=== PATIENT | female | born 1970 | race Caucasian/White ===

== ENCOUNTER → 2024-01-01 07:38 | Outpatient (REF) | payer OTHER, SELFPAY | LOC: HWRAD 07:38 | PROVIDERS: ATTENDING PHYSICIAN Nurse Practitioner Family | DX: M79.89 Other specified soft tissue disorders (principal) | CPT/HCPCS: 76882 ==

== ENCOUNTER 2024-02-14 06:45 | Emergency (ER) | payer OTHER, SELFPAY ==
[2024-02-14 06:47] VITALS: BP 144/88
--- NOTE | 2024-02-14 07:09 | ED.MUSCINJ ---
HPI-Injury
General
Chief Complaint: Musculo-Skeletal Complaint
Time Seen by Provider: 02/14/24 06:52
History of Present Illness-Injury
Initial Injury comments:
53-year-old female without significant past medical history presenting for right shoulder pain. Patient reports last evening she was driving home from dinner. She did a quick motion with the right shoulder when driving and when she got home
started to have increased pain to the right shoulder. She is having difficulty lifting her shoulder secondary to pain. Denies numbness or tingling to the arm. Denies chest pain or difficulty breathing. Denies fever or cough. Denies injuries to
the shoulder in the past. She has not tried any medications for pain. She denies additional acute medical complaint
Past History
Past History
ED Past Medical History: Other (asymptomatic kidney stones (incidental finding))
ED Past Surgical History: and Other (Sinus surgery)
Social History
Tobacco: Non-smoker
Personal:
Living: with family
Family History
Family History: Negative Diabetes, Hypertension, Early CAD, Asthma or Cancer
Phy Exam
Physical Exam
Physical Exam:
General: Well-appearing, no clinical signs of dehydration, nontoxic and in no acute distress
HEENT: protecting airway
Neck: appears supple
CV: Normal heart rate
Resp: No accessory muscle use, no increased work of breathing
Abd: No distention
Extremities: No deformities, no swelling. Decreased range of motion to the right shoulder, particularly in abduction. Distal sensation and pulses intact. No erythema or warmth
Neuro: alert, no focal neurologic deficit
: deferred
Rectal: deferred
Psych: Normal affect
Skin: Intact
Injury Course
Orders/Labs/Results
Orders:
Orders
02/14/24 07:08
Ketorolac [Toradol] 15 mg IM NOW STA
Shoulder, Right 2 Views [CR Shoulder - Right Min 2 View] Urgent
Comment:
Reason For Exam: pain, suspected rotator cuff injury
02/14/24 07:10
Electrocardiogram (*1) Urgent
Reason for Study: Other
Other Reason for Exam: shoulder pain
EKG- Treatment ONCE
MDM/Problems Addressed
MDM/Problems Addressed:
53-year-old female presenting with right shoulder pain after she twisted her shoulder while driving. Vital signs are normal.
On exam, patient is well-appearing, no acute distress or discomfort. Overall benign examination without obvious deformity or swelling. No infectious findings. No neurovascular compromise. Range of motion limited secondary to pain. Send
assessment was consistent with musculoskeletal strain, possible rotator cuff injury given issues with abduction. Patient without chest pain breathing, without concern for ACS. Will screen with EKG. Will administer Toradol for pain and screen with
x-ray imaging.
08:20 - X-ray without fracture or malalignment. On reassessment, patient remains hemodynamically stable. Feel stable for discharge with continued outpatient supportive therapy. Provided with patient for orthopedics, may require MRI imaging if
symptoms are persisting. Return precautions discussed and patient verbalized understanding
*Critical Care Note
Total Time (30-74mins, 75-104mins- exclusive of procedures): Not Applicable
ED Attending Note
-
Portions of this chart may have been created with voice recognition software.� Occasional wrong word or��sound alike� substitutions may have occurred due to the inherent limitations of voice recognition software.
Discharge Plan
Departure
Prescriptions:
No Action
No Current Medications
hydrocodone-acetaminophen [Vicodin ES] 1 EACH tablet
1 ea PO Q4HPRN PRN (Reason: pain) Qty: 14 0RF
phenazopyridine 200 MG tablet
200 mg PO TID Qty: 6 0RF
ciprofloxacin HCl 500 MG tablet
500 mg PO BID Qty: 6 0RF
oxybutynin chloride [Ditropan XL] 10 MG tablet extended release 24hr
10 mg PO DAILY Qty: 7 0RF
prednisone 10 MG tablet
10 mg PO .TAPER Qty: 20 0RF
Rx Instructions:
Take [id number], [id number], [id number], [id number].
Referrals:
UNKNOWN - PT DOES,NOT KNOW [Family Provider] -
Interventions
Interventions:
*Risk Screen - Suicide Last Done: 02/14/24 06:47
*General Assessment Last Done: 02/14/24 06:47
*Neglect/Abuse Screening Last Done: 02/14/24 06:47
Discharge Date and Time
Print Language: BELARUSIAN
[2024-02-14] MEDS: TORADOL 15 MG IM (07:21)
[2024-02-14 09:06] VITALS: BP 129/84
== END 2024-02-14 09:12 | disposition home or self-care (01) ==
LOC: EMR 06:45
PROVIDERS: EMERGENCY PHYSICIAN Student in an Organized Health Care Education/Training Program; FAMILY PHYSICIAN Nurse Practitioner Family
DX: M25.511 Pain in right shoulder (principal); Z82.49 Family history of ischemic heart disease and other diseases of the circulatory system; Z87.442 Personal history of urinary calculi
CPT/HCPCS: 99283; 73030

== ENCOUNTER 2024-02-15 19:07 | Emergency (ER) | payer OTHER, SELFPAY ==
[2024-02-15 19:08] VITALS: BP 149/90
[2024-02-15] MEDS: NORCO 5/325 1 TABLET PO (20:08)
--- NOTE | 2024-02-15 22:37 | ED.MUSCINJ ---
HPI-Injury
General
Chief Complaint: Musculo-Skeletal Complaint
Source: patient
Exam Limitations: none
Time Seen by Provider: 02/15/24 19:56
Nursing documentation reviewed up to this point in time: agreed with
History of Present Illness-Injury
Is this injury a work related problem?: No
Is pt an associate of [facility]/[place]?: No
Initial Injury comments:
Patient to ED with complaint of worsening right shoulder pain. States she was seen in ED yesterday for same. States she developed pain after reaching across her body. Xray yesterday neg. Given rx for flexeril and toradol which initially were
helpul. Today she tried moving her arm and pain increased. she is concerned that she dislocated her shoulder. Pain meds not longer helping. Brought to ED by spouse for eval.
Past History
Past History
ED Past Medical History: Other (asymptomatic kidney stones (incidental finding))
ED Past Surgical History: and Other (Sinus surgery)
Social History
Tobacco: Non-smoker
Personal:
Living: with family
Family History
Family History: Negative Diabetes, Hypertension, Early CAD, Asthma or Cancer
Review of Systems
Review of Systems
Allergies reviewed?: Yes
All Other Systems: ROS reviewed and negative except as documented in HPI and ROS
Constitutional: Reports no symptoms
Musculoskeletal: Reports joint pain (pain to right shoulder)
Skin: Reports no symptoms
Neurological: Reports no symptoms
Psychiatric: Reports no symptoms
Musculoskeletal Injury Exam
Musculoskeletal Injury Exam
Right Shoulder:
Pain with Movement?: Moderate
Tender to palpation?: Moderate
Soft tissue swelling?: None
External deformity and angulation?: None
Joint effusion?: None
Contusion?: None
Hematoma-local bleeding into tissue?: None
Strain- Sprain- Tear (Connective tissue injury)?: Moderate
Crepitus with movement?: No
Joint instability?: No
Malalignment/deformity?: No
Range of motion: Limited
Distal skin color and temperature: normal-warm & good color
Capillary Refill: normal
Normal distal neurovascular exam?: Yes
Peripheral Pulses: radial (right): 3+
Phy Exam
General Physical Exam
General Presentation: well appearing and no apparent distress
General age: appears stated age
General Skin: warm and dry
General Habitus: normal
Musculoskeletal Exam
Musculoskeletal Exam: neuro vasc intact
Skin Exam
Skin Exam: normal color, warm/dry and no rash
Psychiatric Exam
Psychiatric Exam: normal mood/affect
Injury Course
Orders/Labs/Results
Orders:
Orders
02/15/24 20:01
Hydrocodone 5/APAP 325 [[place] 5/325] 1 tablet PO NOW STA
Shoulder, Right, Trauma [CR Shoulder, Trauma - Right] Urgent
Comment:
Reason For Exam: Follansbee a pop with movement 'feels dislocated'
*Radiology
Radiology exam reviewed: radiology read reviewed
*Pulse Oximetry
Patient hypoxic: no
*Critical Care Note
Total Time (30-74mins, 75-104mins- exclusive of procedures): Not Applicable
Update Note
Update Note:
Patient to ED with worsening right shoulder pain after attemping to move arm. XRay reviewed, no acute findings. Will continue with use of sling and ice. Given rx for short course of hydrocodone. WIll call ortho tomorrow AM to schedule appt for
follow up
ED Attending Note
-
Portions of this chart may have been created with voice recognition software.� Occasional wrong word or��sound alike� substitutions may have occurred due to the inherent limitations of voice recognition software.
Discharge Plan
Departure
Patient Disposition: Home (Routine Discharge)
Date of Disposition: 02/15/24
Time of Disposition: 20:44
Patient with high blood pressure during this ER visit?: No
Condition: Good
Covid-19: Not Applicable
Discharge Problem:
Acute shoulder pain
Instructions: Using Cold for Pain, Shoulder pain
Prescriptions:
New
hydrocodone-acetaminophen 5-325 mg tablet
1 tab PO Q4H PRN (Reason: Pain) Qty: 10 0RF
No Action
No Current Medications
hydrocodone-acetaminophen [Vicodin ES] 1 EACH tablet
1 ea PO Q4HPRN PRN (Reason: pain) Qty: 14 0RF
phenazopyridine 200 MG tablet
200 mg PO TID Qty: 6 0RF
ciprofloxacin HCl 500 MG tablet
500 mg PO BID Qty: 6 0RF
oxybutynin chloride [Ditropan XL] 10 MG tablet extended release 24hr
10 mg PO DAILY Qty: 7 0RF
prednisone 10 MG tablet
10 mg PO .TAPER Qty: 20 0RF
Rx Instructions:
Take [id number], [id number], 26rwk5bgqu, 95cjh7ztjn.
ketorolac 10 mg tablet
10 mg PO Q8H PRN (Reason: Pain) 4 Days Qty: 12 0RF
lidocaine 4 % adhesive patch,medicated
1 patch topical BID PRN (Reason: Pain) Qty: 10 0RF
cyclobenzaprine 10 mg tablet
10 mg PO TIDPRN PRN (Reason: muscle spasm) Qty: 14 0RF
Referrals:
Yesica Guillen CRNP [Family Provider] -
Alfred Casarez MD [Active] - Call in 1-3 days for appt
Interventions
Interventions:
*Risk Screen - Suicide Last Done: 02/15/24 19:08
*General Assessment Last Done: 02/15/24 20:09
*Neglect/Abuse Screening Last Done: 02/15/24 19:08
ED- Fall Risk Assessment Last Done: 02/15/24 20:54
*ED COVID-19 Vaccine History Last Done: 02/15/24 20:09
*Nursing Disposition Last Done: 02/15/24 20:54
ED-Musculoskeletal Assessment Last Done: 02/15/24 20:40
Discharge Date and Time
Discharge Date/Time: 02/15/24 20:55
Print Language: PARAGUAYAN
== END 2024-02-15 20:55 | disposition home or self-care (01) ==
LOC: EMR 19:07
PROVIDERS: EMERGENCY PHYSICIAN Emergency Medicine; FAMILY PHYSICIAN Nurse Practitioner Family
DX: M25.511 Pain in right shoulder (principal)
CPT/HCPCS: 99283; 73030

== ENCOUNTER → 2024-03-12 13:30 | Outpatient (REF) | payer OTHER, SELFPAY | LOC: HWRAD 13:30 | PROVIDERS: ATTENDING PHYSICIAN Obstetrics & Gynecology Gynecology; FAMILY PHYSICIAN Nurse Practitioner Family | DX: Z12.31 Encounter for screening mammogram for malignant neoplasm of breast (principal); Z78.0 Asymptomatic menopausal state | CPT/HCPCS: 77063; 77067; 77080 ==